=== PATIENT | female | born 1980 | race Caucasian/White ===

== ENCOUNTER 2017-03-18 21:19 | Emergency (ER) | payer OTHER ==
[~2017-03-18] VITALS: Ht 165.1 cm; Wt 85.3 kg
[~2017-03-18 21:19] MED LIST: DESYREL100 MG PO; LEXAPRO20 MG PO; Motrin PO; NOHOMEMEDS; PERCOCET 5/31 TABLET PO; Percocet 5/325,Endoc PO; ZOFRAN ODT4 MG PO
[2017-03-18 23:06] VITALS: BP 119/81
== END 2017-03-18 23:17 | disposition home or self-care (01) ==
LOC: EME 21:19
DX: G43.909 Migraine, unspecified, not intractable, without status migrainosus (principal); F32.9 Major depressive disorder, single episode, unspecified; Z90.711 Acquired absence of uterus with remaining cervical stump; F17.200 Nicotine dependence, unspecified, uncomplicated
CPT/HCPCS: 99281; 99284; J1200; J1885; J2765; J7030